=== PATIENT | male | born 1950 | race Caucasian/White ===

== ENCOUNTER 2017-12-13 10:09 | Outpatient (CLI) | payer BC ==
--- NOTE | 2017-12-13 11:16 | RAD ---
PA AND LATERAL CHEST: Indication: Cough. Comparison: None. FINDINGS: No focal airspace consolidation, pleural effusion, or pneumothorax. There is tortuosity of the aorta. IMPRESSION: No acute cardiopulmonary abnormality. POS: [facility]
== END 2017-12-13 10:10 | disposition home or self-care (01) ==
LOC: SCSRAD 10:09
PROVIDERS: ATTEND Family Medicine
DX: R05 Cough (principal)
CPT/HCPCS: 71046

== ENCOUNTER 2022-08-07 16:26 | Emergency (ER) | payer BC ==
[2022-08-07 17:21] LABS: #Basophils 0.1 thou/uL (0.0-0.2); #Eosinphils 0.3 thou/uL (0.0-0.7); #Lymphocytes 2.2 thou/uL (1.20-3.40); #Monocytes 1.1 thou/uL (0.11-0.59); #Neutrophils 6.3 thou/uL (1.40-6.50); %Basophils 0.9 % (0.0-1.0); %Eosinophils 3.2 % (0.0-10.0); %Lymphocytes 21.8 % (21.0-51.0); %Monocytes 11.2 % (0.0-10.0); %Neutrophils 62.9 % (42.0-75.0); Hemoglobin 15.4 g/dL (14.0-18.0); Mean Corpuscular HGB CONC 33.6 g/dL (32.0-36.0); Mean Corpuscular Hemoglobin 33.7 pg (27.0-31.0); Mean Platelet Volume 9.4 fL (7.4-10.4); Platelet Count 287 10x3/uL (130-400); RBC Distribution Width 12.2 % (11.5-14.5); Red Blood Cell (RBC) Count 4.57 mill/uL (4.70-6.10)
[2022-08-07 17:43] LABS: ALT (SGPT) 19 U/L (8-55); AST (SGOT) 21 U/L (5-34); Albumin 4.3 g/dL (3.4-4.8); Alkaline Phosphatase 134 U/L (40-110); Anion Gap 11 mmol/L (10-20); BUN (Urea Nitrogen) 15 mg/dL (8.4-25.7); Bilirubin, Total 0.6 mg/dL (0.2-1.2); Calc. Creatinine Clearance 0 mL/min (70-130); Calcium 9.1 mg/dL (7.8-10.44); Carbon Dioxide 30 mmol/L (23-31); Chloride 104 mmol/L (98-107); Estimated GFR 94; Globulin 2.5 g/dL (2.4-3.5); Glucose 87 mg/dL (80-115); Potassium 4.2 mmol/L (3.5-5.1); Protein, Total 6.8 g/dL (5.8-8.1); Sodium 141 mmol/L (136-145)
== END 2022-08-07 18:44 | disposition home or self-care (01) ==
LOC: ERS 16:26
DX: M25.512 Pain in left shoulder (principal)
CPT/HCPCS: 36415; 71045; 80053; 84484; 85025; 93005

== ENCOUNTER 2022-08-29 18:53 | Inpatient (IN) | payer BC ==
[~2022-08-29 18:53] MED LIST: Iopamidol-370 76% 500 ML 1 ML ONE
[2022-08-29 19:30] LABS: #Basophils 0.1 thou/uL (0.0-0.2); #Eosinphils 0.4 thou/uL (0.0-0.7); #Lymphocytes 1.6 thou/uL (1.20-3.40); #Monocytes 1.6 thou/uL (0.11-0.59); #Neutrophils 9.5 thou/uL (1.40-6.50); %Basophils 0.6 % (0.0-1.0); %Eosinophils 2.9 % (0.0-10.0); %Lymphocytes 12.5 % (21.0-51.0); %Monocytes 11.8 % (0.0-10.0); %Neutrophils 72.2 % (42.0-75.0); Hemoglobin 15.7 g/dL (14.0-18.0); Mean Corpuscular HGB CONC 32.2 g/dL (32.0-36.0); Mean Corpuscular Hemoglobin 31.8 pg (27.0-31.0); Mean Corpuscular Volume 98.8 fl (78.0-98.0); Mean Platelet Volume 8.7 fL (7.4-10.4); Platelet Count 384 10x3/uL (130-400); RBC Distribution Width 12.1 % (11.5-14.5); Red Blood Cell (RBC) Count 4.94 mill/uL (4.70-6.10); White Blood Cell (WBC) Count 13.1 10x3/uL (4.8-10.8)
[2022-08-29 19:46] LABS: ALT (SGPT) 18 U/L (8-55); AST (SGOT) 23 U/L (5-34); Albumin 4.1 g/dL (3.4-4.8); Alkaline Phosphatase 125 U/L (40-110); Anion Gap 13 mmol/L (10-20); BUN (Urea Nitrogen) 12 mg/dL (8.4-25.7); Bilirubin, Total 0.7 mg/dL (0.2-1.2); Calc. Creatinine Clearance 0 mL/min (70-130); Calcium 9.4 mg/dL (7.8-10.44); Carbon Dioxide 27 mmol/L (23-31); Chloride 103 mmol/L (98-107); Estimated GFR 94; Glucose 93 mg/dL (80-115); Potassium 4.4 mmol/L (3.5-5.1); Protein, Total 7.1 g/dL (5.8-8.1); Sodium 139 mmol/L (136-145)
[2022-08-29] MEDS ORDERED: Cefepime 2 GM VIAL ONE (20:29)
[2022-08-29] MEDS ORDERED: Vancomycin 1 GM/200 ML (FROZEN) BAG ONE (20:29)
[2022-08-29 22:15] LABS: SARS-CoV-2 NAA Rapid Test Not Detected (NotDetected)
[2022-08-29] MEDS ORDERED: Ondansetron PF 4 MG/2 ML Vial IVP PRN (22:39)
[2022-08-29] MEDS ORDERED: Acetaminophen 325 MG TAB PO PRN (22:39)
[2022-08-29] MEDS ORDERED: Acetaminophen 650 MG Suppository PR PRN (22:39)
[2022-08-29] MEDS ORDERED: Ondansetron ODT 4 MG TAB PO PRN (22:39)
[2022-08-30 04:46] LABS: #Basophils 0.1 thou/uL (0.0-0.2); #Eosinphils 0.4 thou/uL (0.0-0.7); #Lymphocytes 1.3 thou/uL (1.20-3.40); #Monocytes 1.6 thou/uL (0.11-0.59); #Neutrophils 8.9 thou/uL (1.40-6.50); %Basophils 0.6 % (0.0-1.0); %Eosinophils 3.2 % (0.0-10.0); %Lymphocytes 10.6 % (21.0-51.0); %Neutrophils 72.5 % (42.0-75.0); Hemoglobin 14.6 g/dL (14.0-18.0); Mean Corpuscular HGB CONC 32.4 g/dL (32.0-36.0); Mean Corpuscular Hemoglobin 31.7 pg (27.0-31.0); Mean Corpuscular Volume 97.8 fl (78.0-98.0); Mean Platelet Volume 9.2 fL (7.4-10.4); Platelet Count 370 10x3/uL (130-400); Red Blood Cell (RBC) Count 4.61 mill/uL (4.70-6.10); White Blood Cell (WBC) Count 12.2 10x3/uL (4.8-10.8)
[2022-08-30 05:08] LABS: Anion Gap 12 mmol/L (10-20); BUN (Urea Nitrogen) 12 mg/dL (8.4-25.7); Calc. Creatinine Clearance 0 mL/min (70-130); Calcium 8.9 mg/dL (7.8-10.44); Carbon Dioxide 27 mmol/L (23-31); Chloride 104 mmol/L (98-107); Estimated GFR 97; Glucose 109 mg/dL (80-115); Sodium 139 mmol/L (136-145)
[2022-08-30 11:37] LABS: Fluid, pH - Pleural Fld 7.44 (7.60 - 7.66)
[2022-08-30 11:38] LABS: Fluid, Triglycerides 20 mg/dL (Not Available); Pleural Fluid, Amylase Less than 30 U/L (Not Available); Pleural Fluid, Glucose 76 mg/dL; Pleural Fluid, LDH 1100 U/L (Not Available); Pleural Fluid, Protein 4.4 g/dL
[2022-08-30 11:45] LABS: RBC Count-Automated (BF) 31941 /cu.mm; WBC/Nucleated-Auto (BF) 5691 /cu.mm
[2022-08-30 13:23] LABS: Body Fluid Source Thoracentesis Fluid; Tube # EDTA
[2022-08-30 13:24] LABS: BF Color Red; Clarity Cloudy/Turbid (Clear)
[2022-08-30 13:26] LABS: BF Segmented Neutrophils 32 %; Cell Count Non Hematic 21 %; Eosinophils 7 %; Lymphocytes 40 %
[2022-08-30 14:12] VITALS: BMI 24.2
[2022-08-30] MEDS ORDERED: Benzonatate 100 MG CAP PO PRN (17:57)
[2022-09-01 16:48] VITALS: BP 142/80; TEMP 98.2
== END 2022-09-01 17:10 | disposition home or self-care (01) | DRG 180 ==
LOC: ERS 18:53 → ERHOLD 21:55 → 2NO 08-30 12:17
PROVIDERS: ADMIT Internal Medicine; ATTEND Internal Medicine
PROC: 0W9B3ZX Drainage of Left Pleural Cavity, Percutaneous Approach, Diagnostic (ICD-10-PCS; principal; 2022-08-30)
DX: C34.92 Malignant neoplasm of unspecified part of left bronchus or lung (principal); J96.00 Acute respiratory failure, unspecified whether with hypoxia or hypercapnia; J91.0 Malignant pleural effusion; Q89.01 Asplenia (congenital); Z20.822 Contact with and (suspected) exposure to COVID-19; R91.8 Other nonspecific abnormal finding of lung field; Z88.1 Allergy status to other antibiotic agents; Z88.2 Allergy status to sulfonamides; Z85.07 Personal history of malignant neoplasm of pancreas; Z90.49 Acquired absence of other specified parts of digestive tract; Z79.51 Long term (current) use of inhaled steroids
CPT/HCPCS: 36415; 71045; 71275; 80048; 80053; 82150; 82945; 83605; 83615; 83880; 83986; 84157; 84478; 84484; 85025; 85060; 87040; 87070; 87086; 87116; 87205; 87206; 88112; 88305; 88341; 88342; 89051; 93005; 93306; 94760; 96365; 96367; J0692; J1650; J1956; J3370-JW; Q9967

== ENCOUNTER 2023-05-25 11:35 | Emergency (ER) | payer BC ==
[2023-05-25] MEDS ORDERED: Ondansetron PF 4 MG/2 ML Vial ONE (11:56)
[2023-05-25 12:01] LABS: #Monocytes 0.5 thou/uL (0.11-0.59); #Neutrophils 6.3 thou/uL (1.40-6.50); %Basophils 0.3 % (0.0-1.0); %Eosinophils 0.1 % (0.0-10.0); %Lymphocytes 8.8 % (21.0-51.0); %Monocytes 7.2 % (0.0-10.0); %Neutrophils 83.5 % (42.0-75.0); Hematocrit 42.7 % (42.0-52.0); Hemoglobin 14.4 g/dL (14.0-18.0); Mean Corpuscular HGB CONC 33.7 g/dL (32.0-36.0); Mean Corpuscular Hemoglobin 34.3 pg (27.0-31.0); Mean Corpuscular Volume 101.7 fl (78.0-98.0); Mean Platelet Volume 11.5 fL (7.4-10.4); Platelet Count 248 10x3/uL (130-400); RBC Distribution Width 15.5 % (11.5-14.5); White Blood Cell (WBC) Count 7.5 10x3/uL (4.8-10.8)
[2023-05-25 12:18] LABS: ALT (SGPT) 27 U/L (8-55); AST (SGOT) 36 U/L (5-34); Albumin 5.2 g/dL (3.4-4.8); Alkaline Phosphatase 147 U/L (40-110); Anion Gap 15 mmol/L (10-20); BUN (Urea Nitrogen) 19 mg/dL (8.4-25.7); Bilirubin, Total 0.5 mg/dL (0.2-1.2); Calc. Creatinine Clearance 0 mL/min (70-130); Calcium 10.2 mg/dL (7.8-10.44); Carbon Dioxide 28 mmol/L (23-31); Chloride 100 mmol/L (98-107); Estimated GFR 86; Globulin 2.2 g/dL (2.4-3.5); Glucose 118 mg/dL (80-115); Potassium 4.3 mmol/L (3.5-5.1); Protein, Total 7.4 g/dL (5.8-8.1); Sodium 139 mmol/L (136-145)
[2023-05-25 12:19] LABS: Troponin I Less than 0.010 ng/mL (< 0.028)
[2023-05-25] MEDS ORDERED: Meclizine HCl 25 MG TAB ONE (12:45)
== END 2023-05-25 12:58 | disposition home or self-care (01) ==
LOC: ERS 11:35
DX: R42 Dizziness and giddiness (principal); R11.2 Nausea with vomiting, unspecified
CPT/HCPCS: 36415; 70450; 80053; 83605; 83880; 84484; 85025; 93005; 96361; 96374; J2405